=== PATIENT | female | born 2000 | race Two or more races ===

== ENCOUNTER 2021-01-24 22:27 | Emergency (ER) | payer MEDICAID ==
[~2021-01-24] VITALS: Ht 154.9 cm; Wt 97.0 kg
--- NOTE | 2021-01-24 22:45 | NUR ---
ERP AT BEDSIDE
[2021-01-24 23:06] LABS: BASOPHILS % (AUTO) 1 % (0-1); EOSINOPHILS % (AUTO) 1 % (1-7); LYMPHOCYTES % (AUTO) 17 % (22-44); MEAN CORPUSCULAR HEMOGLOBIN 29.7 pg (27.0-34.8); MEAN CORPUSCULAR HGB CONC 34.1 g/dL (32.4-35.8); MEAN PLATELET VOLUME 9.5 fL (7.4-10.4); MONOCYTES % (AUTO) 6 % (2-9); NEUTROPHILS % (AUTO) 76 % (42-75); PLATELET COUNT 291 x10^3/uL (130-400); RED BLOOD COUNT 5.11 x10^6/uL (3.82-5.3); RED CELL DISTRIBUTION WIDTH 12.9 % (9.6-15.2)
[2021-01-24 23:11] LABS: MD NO
[2021-01-24 23:14] LABS: ANION GAP 5 mmol/L (5-15); CALCIUM 9.2 mg/dL (8.5-10.1); CHLORIDE 111 mmol/L (98-107); CREATININE 0.87 mg/dL (0.55-1.02)
[2021-01-24 23:15] LABS: ALANINE AMINOTRANSFERASE 39 U/L (12-78); ALBUMIN 4.2 g/dL (3.4-5.0)
[2021-01-24 23:19] LABS: ALKALINE PHOSPHATASE 130 U/L (45-117); BILIRUBIN,TOTAL 0.2 mg/dL (0.2-1.0); TOTAL PROTEIN 8.1 g/dL (6.4-8.2)
--- NOTE | 2021-01-24 23:19 | NUR ---
US AT BEDSIDE
[2021-01-24 23:47] LABS: MICROSCOPIC INDICATED
[2021-01-24 23:59] VITALS: BP 124/64
--- NOTE | 2021-01-25 00:30 | NUR ---
Patient given discharge instructions and they have confirmed that they understand the instructions. Patient ambulatory with steady gait.
== END 2021-01-25 00:48 | disposition home or self-care (01) ==
LOC: ED 01-25 00:29
DX: O03.9 Complete or unspecified spontaneous abortion without complication (principal); R19.7 Diarrhea, unspecified; R10.2 Pelvic and perineal pain
CPT/HCPCS: 36415; 76801; 80053; 81001; 83690; 84702; 85025; 86901; 87086; 87147; 99284